=== PATIENT | male | born 1980 | race Caucasian/White ===

== ENCOUNTER 2024-11-27 05:52 | Day surgery (SDC) | payer BC, OTHER ==
[2024-11-16 13:21] VITALS: BMI 35.4
[2024-11-27 10:32] VITALS: TEMP 98
[2024-11-27 11:23] VITALS: BP 110/60; PULSE 78; RESP 16
[2024-11-27 12:38] LABS: ABSOLUTE IMMATURE GRANULOCYTES 0.02 x10^3/uL (0.0-0.031); BASOPHILS # 0.01 x10^3/uL (0.01-0.08); EOSINOPHIL % 1.6 % (0.8-7.0); EOSINOPHILS # 0.07 x10^3/uL (0.04-0.54); HEMATOCRIT 49.2 % (40.1-51.0); HEMOGLOBIN 15.5 g/dL (13.7-17.5); MCHC 31.5 g/dl (32.3-36.5); MEAN CELL VOLUME 80.7 fl (79.0-92.2); MEAN PLT VOLUME 10.2 fl (9.4-12.4); MONOCYTE # 0.38 x10^3/uL (0.30-0.82); MONOCYTE % 8.7 % (5.3-12.2); PLATELET COUNT 165 x10^3/uL (163-337); RDW 13.6 % (12.1-15.9)
[2024-11-27 12:58] LABS: POTASSIUM 4.1 mmol/L (3.5-5.1)
[2024-11-27 13:01] LABS: BLOOD UREA NITROGEN 12.6 mg/dL (7-18); CALCIUM 9.8 mg/dL (8.5-10.1)
[2024-11-27 13:03] LABS: CREATININE 0.9 mg/dL (0.55-1.3)
[2024-11-27 13:06] LABS: BILIRUBIN,TOTAL 0.6 mg/dL (0.2-1); TOT PROT 6.7 g/dl (6.4-8.2)
[2024-11-30 17:07] LABS: C-ANCA <1:20 titer (Neg:<1:20)
== END 2024-11-27 11:45 | disposition home or self-care (01) ==
LOC: JASU-ENDO 05:52
PROVIDERS: ATTEND Internal Medicine Gastroenterology
PROC: 0DBP8ZX Excision of Rectum, Via Natural or Artificial Opening Endoscopic, Diagnostic (ICD-10-PCS; 2024-11-27)
PROC: 0DBB8ZX Excision of Ileum, Via Natural or Artificial Opening Endoscopic, Diagnostic (ICD-10-PCS; principal; 2024-11-27 10:00)
DX: Z12.11 Encounter for screening for malignant neoplasm of colon (principal); K50.018 Crohn's disease of small intestine with other complication; K64.8 Other hemorrhoids; Q43.1 Hirschsprung's disease
CPT/HCPCS: 36415; 80053; 82728; 82962; 83036; 83516; 83520; 83540; 83550; 85025; 86140; 86255; 86256; 86671; 88305-TC